=== PATIENT | female | born 1930 | race Caucasian/White ===

== ENCOUNTER 2016-08-08 21:13 | Inpatient (IN) | payer MEDICARE ==
--- NOTE | ~2016-08-08 | HP ---
History And Physical [address] [place]. [address] NAME: MAKI ADAM : 32 STATUS : ADM IN [facility]#: [id number] AGE: 86 ADM/REG DATE : 08/09/16 MR#: [id number] REPORT SERV DATE: 08/09/16 DICTATED BY: TAE SHER DATE: 08/09/16 REPORT STATUS : Draft TRANSCRIBED BY: BANDAR DATE: 08/09/16 DATE OF ADMISSION: 08/08/2016 CHIEF COMPLAINT: Left hip pain. HISTORY OF PRESENT ILLNESS: The patient is an 86-year-old elderly female, who is a resident of an assisted living facility the [facility]. The patient reports she had slipped and fallen and complained of left hip pain. She had an x-ray done after her fall and she reports she was told that she has a broken left hip. The patient was therefore transferred to [facility] for further evaluation and treatment. ALLERGIES: PENICILLIN CAUSES SWELLING AND REDNESS, CODEINE CAUSES NAUSEA. SHE HAS NO KNOWN FOOD ALLERGY, BUT REPORTS SHE HAS ALLERGY TO POLLEN. CODE STATUS: DNR with limited intervention. MEDICATIONS: Include 1. P.r.n. Tylenol. 2. Acetylcysteine 600 mg 1 capsule twice a day. 3. Abilify 5 mg daily. 4. Benazepril 10 mg daily. 5. Brimonidine ophthalmic solution 0.1% solution 1 drop three times daily. 6. Brinzolamide ophthalmic solution 1 drop twice a day. 7. Calcium with vitamin D 500 tablet 1 tablet p.o. daily. 8. Cholecalciferol 2000 unit tablet 1 tablet daily. 9. Namenda 10 mg one tablet at bedtime. 10.Mirabegron 25 mg ER one tablet at bedtime. 11.Omeprazole 20 mg p.o. daily. 12.Tramadol 50 mg p.o. at bedtime. 13.Trazodone 50 mg tablet half a tablet at bedtime. 14.Lactinex chew 1 tablet daily. PAST MEDICAL HISTORY: Positive for: 1. Osteoarthritis, generalized. 2. Hypertension. 3. Osteoporosis. PAST SURGICAL HISTORY: Positive for hysterectomy, appendectomy at age 17, and bilateral cataract surgery 18 years ago. SOCIAL HISTORY: The patient is a resident of the [facility]. She has three children, two living and one . The patient reports she has two children live in [place]. FAMILY HISTORY: The patient reports both mother and father of heart problem. She reports both have hypertension. Maternal grandmother had a stroke. The patient reports no History And Physical [address] [place]. [address] NAME: MAKI ADAM : 32 STATUS : ADM IN [facility]#: [id number] AGE: 86 ADM/REG DATE : 08/09/16 MR#: [id number] REPORT SERV DATE: 08/09/16 DICTATED BY: TAE SHER DATE: 08/09/16 REPORT STATUS : Draft TRANSCRIBED BY: BANDAR DATE: 08/09/16 family history of diabetes and renal kidney disease. REVIEW OF SYSTEMS: The patient reports she has a history of glaucoma and cataracts. She had cataract surgery 18 years ago. The patient denies any problem hearing or swallowing. The patient reports she has a history of hypertension. The patient denies any complaint of chest pain or shortness of breath. The patient reports she had asthma as a child. She does have allergies. The patient reports she has a history of reflux. She denies any history of ulcer. The patient reports she had a small growth in her throat and found 10 years ago but no issue with swallowing. She denies any complaint of nausea and vomiting. She does take omeprazole. The patient reports she has no issue with urination. She denies any complaint of pain. She reports she had a catheter placed at the hospital. The patient reports she has a history of generalized arthritis. She has a history of osteoporosis. She walks with a walker. Her recent incident of fall was secondary to her shoe getting caught in her walker and she slipped and fell. She denies any history of other falls. The patient reports she does have occasional swelling especially around her ankle. She denies any history of seizures or stroke. She reports she was receiving rehab while at [facility]. The patient denies any anxiety and denies any thyroid or hypoglycemia. The patient denies any history of dementia. The patient denies any history of aspirin use or any bleeding issue. PHYSICAL EXAMINATION: VITAL SIGNS: BP of 173/84, pulse of 73, respiratory rate 18, temperature 97.7, and sat O2 of 98% on 2 L nasal cannula. Weight of 58.96 kg. BMI of 19.2. Last I's and O's was 140/2300 mL. GENERAL: The patient is alert and oriented with no acute distress noted. HEENT: Oral mucosa moist. Nasal cannula in use at 2 L. Eyes, PERRL. Nonicteric bilaterally. NECK: Supple. No JVD. CHEST: No chest deformity noted. LUNGS: Clear to auscultation bilaterally. Symmetrical expansion. CARDIOVASCULAR: No murmurs, rubs, or gallops noted. Regular rate and rhythm. Normal S1, S2. ABDOMEN: Soft, nontender. Active bowel sounds x4 quadrants. No organomegaly noted. GENITOURINARY: Meza in use with clear urine noted. EXTREMITIES: Bilateral upper extremity with no edema noted. Generalized arthritic changes in the hands and left lower arm peripheral IV intact without redness or pain. Lower extremity noted at least 1+ to 2+ bilateral lower extremity edema especially around the ankle. Good distal pulses palpable. Noted generalized arthritic changes. As well as in the lower extremity strength is 4/5 with good bilateral equal social worker school and mild tenderness on palpation in the left hip, but no ecchymosis or edema noted. LABORATORY STUDIES: On 08/08/2016, sodium 139, potassium 3.7, chloride 101, CO2 of 30, BUN 17, creatinine of 0.55, glucose of 112, GFR of 86. WBC 6.3, hemoglobin 10.0, hematocrit 29.8, platelet of 198. PT of 15.8, INR 1.3. AST 15, bilirubin 1.0, total protein 6.3, ALT of 20, albumin 3.1, and alkaline phosphatase 72. History And Physical [address] [address] NAME: MAKI ADAM : 32 STATUS : ADM IN [facility]#: [id number] AGE: 86 ADM/REG DATE : 08/09/16 MR#: [id number] REPORT SERV DATE: 08/09/16 DICTATED BY: TAE SHER DATE: 08/09/16 REPORT STATUS : Draft TRANSCRIBED BY: MODAmna DATE: 08/09/16 08/09/2016 labs revealed sodium 136, potassium 3.3, chloride 101, CO2 of 29, BUN 9, creatinine 0.44, glucose of 102, and GFR of 92. WBC 5.4, hemoglobin 9.9, hematocrit 28.7, platelet of 184. INR 1.3 and PT of 31.0. IMAGING STUDY: On 08/08/2016, chest x-ray revealed no acute process. Hip x-ray revealed impacted left femoral fracture. IV normal saline at 30 mL and a morphine MOTOR REBUILDER pump in use. ASSESSMENT: 1. Left femoral fracture status post fall. 2. Left hip pain secondary to #1. 3. Hypokalemia. 4. Hypertension, controlled/essential. 5. Anemia secondary to chronic disease. 6. Osteoporosis. 7. Generalized osteoarthritis. 8. Gait impairment. PLAN: Appreciate Dr. Dumont's, surgeon, assistance with care of the patient. The patient is pending left hip surgery today, remain n.p.o., and continue to control pain, which is morphine MOTOR REBUILDER pump. We will continue to keep the patient at bed rest at this time. The patient is at risk for poor recovery. We will keep the patient without any DVT prophylaxis pending surgery, but we will defer DVT prophylaxis, which the patient will likely need anticoagulation post surgery with Coumadin. The patient is at risk for DVT. We will place the patient on electrolyte protocol. On admission, potassium was 3.7, but this morning was 3.3. Since the patient is n.p.o., we will need to replace potassium via IV. We will plan to repeat labs in a.m. The patient is at risk for cardiac arrhythmia. The patient with admission H and H of 10.0 and 29.8 likely anemia secondary to chronic disease. We will continue to monitor laboratories study if needed. We will place the patient on iron supplement or give blood transfusion if significant decline in H and H. The patient is at risk for hypoxia, acute coronary syndrome with severe anemia. We will continue to monitor blood pressure. The patient's blood pressure elevated at this time likely secondary to pain as well as the patient getting her blood pressure medicine. Since the patient is n.p.o., we will have p.r.n. IV hydralazine for blood pressure systolically greater than 150. We will resume home medications once the patient is off n.p.o. The patient is at risk for CVA. We will continue other home med regimen include Abilify despite the patient's report no history of anxiety. We will continue this given the patient might have a breakthrough anxiety while hospitalized post surgery. We will plan to refer the patient to PT/OT once the patient cleared by Orthopedics. The patient is at risk for recurrent fall. Address POLST form/code status with the patient. History And Physical [address] [address] [place] [address] NAME: MAKI ADAM : 32 STATUS : ADM IN PAT#: [id number] AGE: 86 ADM/REG DATE : 08/09/16 MR#: [id number] REPORT SERV DATE: 08/09/16 DICTATED BY: TAE SHER DATE: 08/09/16 REPORT STATUS : Draft TRANSCRIBED BY: DARIANL DATE: 08/09/16 The patient wishes not to have any heroic effort, but is in agreement with limited intervention to include antibiotic, IV fluid, temporary tube feeding, and medication to stabilize her blood pressure. POLST form completed and placed in chart. DICTATED BY: Lilli Dodd NP CLP/MODL Tae Sher M.D. / [id number] CC: Ted Worrell M.D. NO PCP
--- NOTE | ~2016-08-08 | DS ---
Discharge Summary [facility] [address] [facility] [place]. [address] NAME: MAKI ADAM : 32 STATUS : DIS IN PAT#: [id number] AGE: 86 ADM/REG DATE : 08/09/16 MR#: [id number] REPORT SERV DATE: 08/20/16 DICTATED BY: TAE SHER DATE: 08/19/16 REPORT STATUS : Draft TRANSCRIBED BY: BANDAR DATE: 08/19/16 Data Collection from hospitalization DISCHARGE DIAGNOSES: 1. Left femoral fracture status post fall,, status post left hip total hip arthroplasty. 2. Gait impairment. 3. Hgrnqqpbtblu-ffiqbid-igrgwjninn. 4. Anemia of chronic disease. 5. Osteoporosis. 6. Osteoarthritis. CONSULTATION: Dr. Elicia Dumont. PROCEDURES PERFORMED: Uncemented total hip arthroplasty, Tri-Lock, 08/09/2016. PATHOLOGY: Femoral head left hip joint replacement-medullary hemorrhage consistent with clinical history of fracture. No tumor seen. Hematopoietic marrow was present and shows trilineage maturation. DISCHARGE MEDICATIONS: Acetylcysteine 600 mg twice a day, Abilify 5 mg daily, Lotensin 10 mg daily, Alphagan one drop three times a day, Os-Dwight plus D 500 mg daily, vitamin D 2000 units daily, Colace 100 mg twice a day, ferrous sulfate 300 mg with breakfast and supper, Theragran tablets one tablet with breakfast, Namenda 10 mg at bedtime, Myrbetriq 25 mg at bedtime, Prilosec 20 mg daily, Florastor one capsule daily, Desyrel 25 mg at bedtime, Coumadin as instructed, Tylenol 650 mg every four hours as needed, Mylanta 30 mL as needed, Dulcolax 15 mg as needed, Climax 7.5/325 one tablet every four hours as needed, Ultram 50 mg at bedtime, milk of magnesia 30 mL as needed, Zofran 4 mg every four hours as needed, MiraLAX powder one packet twice a day as needed, Azopt one drop twice a day, Lactinex one tablet daily. CONDITION AT DISCHARGE: Stable. DISPOSITION: The patient was discharged to [facility] on a regular diet with activities as instructed. She would follow up with her primary care physician and with Dr. Dumont as instructed. HOSPITAL COURSE: This is an 86-year-old female, who is a resident of an assisted living facility at the [facility]. The patient reports that she slipped and fell and was complaining of left hip pain. An x-ray was performed after her fall and she reports that she was told that she had a broken left hip. She was transferred to the [facility] emergency room for evaluation and treatment. Hip x-ray revealed impacted left femoral fracture. She was admitted to the hospital at this time for further evaluation and treatment. Upon admission, IV normal saline was started as well as morphine ADJUNCT INSTRUCTOR pump. The patient was placed on electrolyte protocol. Potassium supplementation would be provided. The patient was seen by Dr. Elicia Dumont. The patient had been exercising with her walker when she fell and injured her left hip. X-rays had shown displaced left femoral neck fracture. Discharge Summary [address] [place]. 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 Treatment options were discussed and it was elected to proceed with surgical intervention. She was taken to the operating room, where she underwent the above-mentioned procedure by Dr. Dumont. She tolerated this well and there were no complications. On postop day #1, she was evaluated by Occupational and Physical Therapy. Her pain had decreased. She was up sitting in a chair. She did have some confusion. YOUSIF hose were in place. Protonix was continued. On postop day #2, she had no new complaints. She was transfused one unit of packed red blood cells. Discharge planning was performed. On 08/12/2016, she continued to do well. She denied any complaints of shortness of breath, chest pain, nausea, vomiting, or abdominal pain. She reported that her left hip pain was controlled with pain medication. Discharge instructions were given. Due to her improved and stable condition, she was discharged to [facility] with the above-stated instructions. Information collected by: Sheryl Torres I submit the above information as my discharge summary. TG/MODL Tae Sher M.D. / [id number] CC: Mary Mahan M.D. [facility]
--- NOTE | ~2016-08-08 | HP ---
History And Physical [address] [place]. [address] NAME: MAKI ADAM : 32 STATUS : ADM Evelyn PAT#: [id number] AGE: 86 ADM/REG DATE : 08/08/16 MR#: [id number] REPORT SERV DATE: 08/09/16 DICTATED BY: DEENA DUMONT DATE: 08/09/16 REPORT STATUS : Draft TRANSCRIBED BY: MODAmna DATE: 08/09/16 DATE OF ADMISSION: 08/08/2016 CHIEF COMPLAINT: Left hip pain. HISTORY: This is an 86-year-old female, who was exercising with her walker and fell and injured her left hip. She denies pain or injury elsewhere. She has had her feet get from the walker. She had no associated loss of consciousness, shortness of breath, chest pain, etc. ALLERGIES: PENICILLIN AND CODEINE. MEDICATIONS: See chart. PAST MEDICAL HISTORY: Dementia, glaucoma, sinusitis, hypertension, arthritis, osteoporosis, GERD, "schizophrenia" according to the chart, anxiety and depression. PAST SURGICAL HISTORY: Right breast lumpectomy 18 years ago and hysterectomy in 1965. SOCIAL HISTORY: No cigarettes, alcohol, or illicit drug use. FAMILY HISTORY: No known anesthetic complications. REVIEW OF SYSTEMS: No other recent illnesses. PHYSICAL EXAMINATION: GENERAL: She is alert and oriented x3, and very pleasant. (Despite the chart notations of dementia and schizophrenia, she is 100% clear with me). VITAL SIGNS: Afebrile. Vital signs stable. HEENT: Atraumatic, normocephalic. NECK: Supple. CHEST: Symmetric, nontender. LUNGS: Per Medicine evaluation. CV: Regular. ABDOMEN: Soft. No mass. EXTREMITIES: Both upper extremities and right lower extremity without acute trauma. Left lower extremity is short and externally rotated. Skin is intact. Compartment supple. 2+ pulses. NEURO: Sensory decreased subjectively somewhat and due to the pain in her hip, she did not move her toe and ankle up and down to commands. X-RAY: 1. Displaced left femoral neck fracture. 2. Pseudoparalysis, left lower extremity, I suspect secondary to fracture. History And Physical [address] [place]. [address] NAME: MAKI ADAM : 32 STATUS : ADM Evelyn PAT#: [id number] AGE: 86 ADM/REG DATE : 08/08/16 MR#: [id number] REPORT SERV DATE: 08/09/16 DICTATED BY: DEENA DUMONT DATE: 08/09/16 REPORT STATUS : Draft TRANSCRIBED BY: MODL DATE: 08/09/16 PLAN: Left total hip arthroplasty. We discussed risks, benefits, etc, at length, and the patient wishes to proceed. WTB/MODL Elicia Dumont M.D. / [id number] CC: Ted Worrell M.D.
--- NOTE | ~2016-08-08 | OP ---
Record Of Operation [facility] [address] [place]. [address] NAME: MAKI ADAM : 32 STATUS : ADM IN PAT#: [id number] AGE: 86 ADM/REG DATE : 08/09/16 MR#: [id number] REPORT SERV DATE: 08/10/16 DICTATED BY: DEENA MOORE DATE: 08/09/16 REPORT STATUS : Draft TRANSCRIBED BY: BANDAR DATE: 08/09/16 DATE OF PROCEDURE: 08/09/2016 PREOPERATIVE DIAGNOSIS: Left hip displaced femoral neck fracture. POSTOPERATIVE DIAGNOSIS: Left hip displaced femoral neck fracture. PROCEDURE: Uncemented total hip arthroplasty, Tri-Lock. SIDE: Left. BROTH MIXER: ANESTHESIA: See chart. SIZE: See chart. ESTIMATED BLOOD LOSS: About 100 mL. INDICATIONS FOR SURGERY: PROCEDURE: The patient was taken to the operating room and placed supine on the table without incident. Anesthetic was induced per the anesthesiologist. A Meza catheter was placed by the nurse in the standard sterile technique. The correct side for the procedure was identified by preoperative markings and matched with the consent form. All personnel in the room were in agreement regarding the procedure, patient, and side. The patient was then carefully positioned and carefully padded and prepped and draped in the normal sterile fashion. The patient received prophylactic preoperative antibiotics at the appropriate time. The preoperative x-ray was brought up on the monitor. Again, this was reviewed with the staff in the room. According with the preoperative plan, and angled, an anterolateral incision was made centered over the trochanter extending from proximal posterior to distal anterior. Electrocautery was used to maintain meticulous hemostasis. The IT band was split in line with its fibers. A Charnley retractor was placed over saline moistened laps. A standard anterolateral approach to the hip was carried out dissecting in line with the vastus medialis fibers lifting the inferior 20% of the vastus medialis, proximally the interior 20% of the gluteus medius and gluteus minimus tendons off the anterior capsule. Periosteal elevator was used to elevate soft tissue gently directly off the proximal anterior femoral bone. Appropriate retractors were carefully placed. Complete anterior capsulectomy was performed. The hip was then carefully dislocated with a combination of traction maneuver by the certified first assistant and scooping the ball out of the socket with a Hohmann. A femoral neck osteotomy was marked according to what had been preoperatively planned with a broach as a template. The distance for the femoral neck osteotomy was measured with a ruler. A femoral neck osteotomy was made with an oscillating saw under appropriate retraction. Meticulous hemostasis was again obtained. The leg was then brought up out of the anterior bag and Record Of Operation [address] [place]. [address] NAME: MAKI ADAM : 32 STATUS : ADM IN PAT#: [id number] AGE: 86 ADM/REG DATE : 08/09/16 MR#: [id number] REPORT SERV DATE: 08/10/16 DICTATED BY: DEENA MOORE DATE: 08/09/16 REPORT STATUS : Draft TRANSCRIBED BY: BANDAR DATE: 08/09/16 positioned with the lower extremity in external rotation and slight flexion. Acetabular retractors were placed carefully palpating to be sure that they were directly on the bone. The acetabular labrum was excised with electrocautery and rongeur. Pulvinar fat was removed with a large curette and rongeur and again meticulous hemostasis was obtained. Sequential reamers were used in the acetabulum to 1 mm. less than the final size which was chosen. This was felt to give excellent interference fit. The acetabular fossa was then copiously irrigated with pulsatile lavage and actual acetabular component was placed and impacted and checked to make sure it was down snug. The overall alignment was checked. The acetabular set up mold technician was then removed. Screws were placed in the standard fashion. A drill, depth gauge and self tapping screw placement taking care not to plunge as the drill holes were carefully placed. A trial liner was then placed and attention directed back to the proximal femur. The leg was placed back into the anterior bag. The proximal femur was prepared using a box chisel following by a T-handled reamer to determine the intramedullary alignment. This was followed by sequential broaches up to the final broach. Once it was seated in the appropriate position, a Calcar reamer was used to plane the proximal femur. Trial reduction was then done with a trial prosthetic ball and neck. A straight edge was used to compare the tip of the trochanter to center of the ball relationship to what had been noted on the preoperative x-ray. Careful reduction was then done of the total hip. Palpation was done to ascertain and compare leg lengths by palpating the nonoperative leg and also by checking soft tissue tension. The stability of the hip was checked in full extension with full external rotation and in full flexion with adduction, flexion and internal rotation. The hip was then redislocated with a bone hook. The femoral trial and femoral broach were removed. The acetabulum was then prepared under appropriate retraction by removing the trial liner. A central hole eliminator was placed and tightened. The shell was irrigated out. The actual insert was placed and impacted and then checked to be sure it was down snug with a joker. The leg was again positioned in the bag. The proximal femur exposed, irrigated and the actual thermal prosthesis was taken from the healthcare representative and impacted. Once it was down, the trunnion was cleansed with a wet and dry lap and the prosthetic thermal head was placed and impacted and checked to be sure it was down snug. The acetabulum was irrigated and reduction was obtained. Again, we checked soft tissue tension, leg length and stability as described above. The hip was closed in a layered fashion with a 5 mm. Mersilene tape placed through a single drill hole in the proximal anterior/superior trochanter reattaching the gluteus medius and minimus fibers. The vastus lateralis, gluteus medius, and gluteus minimus were then closed in a sleeve. Drain was placed between the vastus and the IT band exiting distally anteriorly. The IT band was closed. Subcutaneous closure and skin closure were then obtained. A sterile dressing was applied. The patient was carefully positioned into a supine position and then awakened. The patient was then carefully transferred to the stretcher to be returned to the postoperative care unit without incident. COMPLICATION: None. SPECIMENS: Left femoral head. Record Of Operation [address] [place]. [address] NAME: MAKI ADAM : 32 STATUS : ADM IN [facility]#: [id number] AGE: 86 ADM/REG DATE : 08/09/16 MR#: [id number] REPORT SERV DATE: 08/10/16 DICTATED BY: DEENA MOORE DATE: 08/09/16 REPORT STATUS : Draft TRANSCRIBED BY: BANDAR DATE: 08/09/16 WTB/MODL Elicia Moore M.D. / [id number] CC: Ted Worrell M.D.
[2016-08-08] MEDS ORDERED: ALPHAGAN P0.1 % OPH (21:50)
[2016-08-08] MEDS ORDERED: AZOPT OPH (21:50)
[2016-08-08 21:51] LABS: BASOPHILS 0.2 %; BASOPHILS ABSOLUTE 0.01 10/3/uL (0.0-0.16); EOSINOPHILS 0.2 %; EOSINOPHILS ABSOLUTE 0.01 10/3/uL (0.0-0.53); ER CBC TAT 0 Hrs 07 Mins; HEMATOCRIT 29.8 % (36.0-48.0); IMMATURE GRANULOCYTES 0.2 %; IMMATURE GRANULOCYTES ABSOLUTE 0.01 10/3/uL (0.0-0.11); LYMPHOCYTES 13.8 %; LYMPHOCYTES ABSOLUTE 0.87 10/3/uL (0.67-4.30); MEAN CORPUS HGB CONC 33.6 g/dL (32.0-36.0); MEAN CORPUSCULAR HEMOGLOB 29.9 pg (26.0-34.0); MEAN CORPUSCULAR VOLUME 89.2 fL (80-100); MEAN PLATELET VOLUME 8.8 fL (9.2-13.0); MONOCYTES 6.2 %; MONOCYTES ABSOLUTE 0.39 10/3/uL (0.21-1.20); NEUTROPHILS 79.4 %; PLATELET COUNT 198 10/3/uL (150-400); RBC DISTRIBUTION WIDTH 13.9 % (12.0-16.0); RED CELL COUNT 3.34 10/6/uL (4.0-5.6); WHITE BLOOD CELLS 6.3 10/3/uL (4.5-10.5)
[2016-08-08] MEDS ORDERED: LACTINEX PO (21:51)
[2016-08-08] MEDS ORDERED: NAMENDA10 MG PO (21:52)
[2016-08-08] MEDS ORDERED: PRILO PO (21:52)
[2016-08-08 21:53] LABS: MANUAL DIFF NO %
[2016-08-08] MEDS ORDERED: ABILIFY5 PO (21:53)
[2016-08-08] MEDS ORDERED: TRAZ50 PO (21:53)
[2016-08-08] MEDS ORDERED: OS500+D PO (21:54)
[2016-08-08] MEDS ORDERED: LOTE10 PO (21:54)
[2016-08-08] MEDS ORDERED: NAC600 MG PO (21:54)
[2016-08-08] MEDS ORDERED: VITAMIN D2000 UNIT PO (21:55)
[2016-08-08] MEDS ORDERED: 8 HOUR650 MG PO (21:55)
[2016-08-08] MEDS ORDERED: ULTRAM50 PO (21:56)
[2016-08-08] MEDS ORDERED: MYRBETRIQ25 MG PO (21:56)
[2016-08-08 21:59] LABS: INTERNATIONAL NORMAL RATI 1.3 UNITS (-); PROTIME (NOT ORD) 15.8 SEC (12.0-14.5)
[2016-08-08 22:09] LABS: ALBUMIN 3.1 G/DL (3.5-5.0); ALKALINE PHOSPHATASE 72 U/L (45-117); BUN (BLOOD UREA NITROGEN) 17 MG/DL (6-23); CALCIUM, SERUM 8.2 MG/DL (8.5-10.4); CHLORIDE, SERUM 101 MMOL/L (96-112); CO2 (CARBON DIOXIDE) 30 MMOL/L (24-34); CREATININE 0.55 MG/DL (0.55-1.02); GFR AFRICAN AMERICAN 99 ML/MIN (>=60); GFR NON AFRICAN AMERICAN 86 ML/MIN (>=60); GLOBULIN 3.2 G/DL (2.5-4.1); GLUCOSE, SERUM 112 MG/DL (60-99); POTASSIUM, SERUM 3.7 MMOL/L (3.5-5.3); SGOT(AST) 15 U/L (5-40); SGPT(ALT) 20 U/L (5-65); SODIUM, SERUM 139 MMOL/L (135-148); TOTAL PROTEIN 6.3 G/DL (6.0-8.5)
[2016-08-08 23:14] LABS: ASCORBIC ACID (UR NOT ORDER) NEG (NEG); BILIRUBIN, URINE NEGATIVE (NEG); ER URINALYSIS TAT 0 Hrs 00 Mins; KETONE, URINE NEGATIVE (NEG); LEUKOCYTE ESTERASE(NOT OR NEG (NEG); NITRITE (URINE) NEG (NEG); WBC (NOT ORDERED) (RFLEX) < 1 (0-5)
[2016-08-09 09:57] LABS: INTERNATIONAL NORMAL RATI 1.3 UNITS (-); PROTIME (NOT ORD) 16.3 SEC (12.0-14.5)
[2016-08-09 10:00] LABS: CHLORIDE, SERUM 101 MMOL/L (96-112); CO2 (CARBON DIOXIDE) 29 MMOL/L (24-34); CREATININE 0.44 MG/DL (0.55-1.02); GFR AFRICAN AMERICAN 107 ML/MIN (>=60); GFR NON AFRICAN AMERICAN 92 ML/MIN (>=60); GLUCOSE, SERUM 102 MG/DL (60-99); POTASSIUM, SERUM 3.3 MMOL/L (3.5-5.3); SODIUM, SERUM 136 MMOL/L (135-148)
[2016-08-09 10:01] LABS: BUN (BLOOD UREA NITROGEN) 9 MG/DL (6-23)
[2016-08-09 10:06] LABS: BASOPHILS 0.2 %; BASOPHILS ABSOLUTE 0.01 10/3/uL (0.0-0.16); EOSINOPHILS 0.9 %; EOSINOPHILS ABSOLUTE 0.05 10/3/uL (0.0-0.53); HEMATOCRIT 28.7 % (36.0-48.0); HEMOGLOBIN 9.9 g/dL (12.0-16.0); IMMATURE GRANULOCYTES 0.2 %; IMMATURE GRANULOCYTES ABSOLUTE 0.01 10/3/uL (0.0-0.11); LYMPHOCYTES 14.2 %; LYMPHOCYTES ABSOLUTE 0.76 10/3/uL (0.67-4.30); MANUAL DIFF NO %; MEAN CORPUS HGB CONC 34.5 g/dL (32.0-36.0); MEAN CORPUSCULAR HEMOGLOB 30.8 pg (26.0-34.0); MEAN CORPUSCULAR VOLUME 89.4 fL (80-100); MEAN PLATELET VOLUME 9.2 fL (9.2-13.0); MONOCYTES 8.2 %; MONOCYTES ABSOLUTE 0.44 10/3/uL (0.21-1.20); NEUTROPHILS 76.3 %; NEUTROPHILS ABSOLUTE 4.08 10/3/uL (2.02-8.40); PLATELET COUNT 184 10/3/uL (150-400); RBC DISTRIBUTION WIDTH 13.7 % (12.0-16.0); RED CELL COUNT 3.21 10/6/uL (4.0-5.6); WHITE BLOOD CELLS 5.4 10/3/uL (4.5-10.5)
[2016-08-10 05:39] LABS: HEMOGLOBIN 8.7 g/dL (12.0-16.0); MEAN CORPUS HGB CONC 34.8 g/dL (32.0-36.0); MEAN CORPUSCULAR HEMOGLOB 31.2 pg (26.0-34.0); MEAN CORPUSCULAR VOLUME 89.6 fL (80-100); MEAN PLATELET VOLUME 8.9 fL (9.2-13.0); PLATELET COUNT 161 10/3/uL (150-400); RED CELL COUNT 2.79 10/6/uL (4.0-5.6)
[2016-08-10 05:40] LABS: MANUAL DIFF YES %
[2016-08-10 05:53] LABS: INTERNATIONAL NORMAL RATI 1.4 UNITS (-)
[2016-08-10 05:54] LABS: BUN (BLOOD UREA NITROGEN) 14 MG/DL (6-23); CALCIUM, SERUM 7.9 MG/DL (8.5-10.4); CHLORIDE, SERUM 101 MMOL/L (96-112); CO2 (CARBON DIOXIDE) 24 MMOL/L (24-34); CREATININE 0.52 MG/DL (0.55-1.02); GFR AFRICAN AMERICAN 101 ML/MIN (>=60); GFR NON AFRICAN AMERICAN 87 ML/MIN (>=60); GLUCOSE, SERUM 103 MG/DL (60-99); POTASSIUM, SERUM 4.3 MMOL/L (3.5-5.3); SODIUM, SERUM 135 MMOL/L (135-148)
[2016-08-10 07:26] LABS: BAND NEUTROPHILS 9 %; IMMATURE GRANS ABSOLUTE (CALC) 0.07 10/3/uL (0.0-0.11); LYMPHOCYTES 5 %; LYMPHOCYTES ABSOLUTE (CALC) 0.35 10/3/uL (0.67-4.30); METAMYELOCYTES 1 %; MONOCYTES 4 %; MONOCYTES ABSOLUTE (CALC) 0.28 10/3/uL (0.21-1.20); PLATELET ESTIMATE ADQ (ADEQUATE); RBC MORPHOLOGY NORM (NORMAL); SEGMENTED NEUTROPHIL (0) 81 %; TOTAL NUCLEATED CELLS 100
[2016-08-11 05:46] LABS: INTERNATIONAL NORMAL RATI 1.4 UNITS (-); PROTIME (NOT ORD) 16.6 SEC (12.0-14.5)
[2016-08-11 05:47] LABS: BASOPHILS 0 %; EOSINOPHILS 0 %; HEMOGLOBIN 7.7 g/dL (12.0-16.0); IMMATURE GRANULOCYTES 0.1 %; IMMATURE GRANULOCYTES ABSOLUTE 0.01 10/3/uL (0.0-0.11); LYMPHOCYTES 7.2 %; MEAN CORPUS HGB CONC 34.8 g/dL (32.0-36.0); MEAN CORPUSCULAR HEMOGLOB 30.7 pg (26.0-34.0); MEAN PLATELET VOLUME 9.6 fL (9.2-13.0); MONOCYTES 7.4 %; MONOCYTES ABSOLUTE 0.51 10/3/uL (0.21-1.20); NEUTROPHILS 85.3 %; NEUTROPHILS ABSOLUTE 5.91 10/3/uL (2.02-8.40); PLATELET COUNT 151 10/3/uL (150-400); RBC DISTRIBUTION WIDTH 13.7 % (12.0-16.0); RED CELL COUNT 2.51 10/6/uL (4.0-5.6); WHITE BLOOD CELLS 6.9 10/3/uL (4.5-10.5)
[2016-08-11 05:53] LABS: HEMATOCRIT 22.1 % (36.0-48.0); MANUAL DIFF NO %
[2016-08-11 05:58] LABS: CALCIUM, SERUM 8.3 MG/DL (8.5-10.4); CHLORIDE, SERUM 100 MMOL/L (96-112); CO2 (CARBON DIOXIDE) 26 MMOL/L (24-34); CREATININE 0.66 MG/DL (0.55-1.02); GFR AFRICAN AMERICAN 93 ML/MIN (>=60); GFR NON AFRICAN AMERICAN 81 ML/MIN (>=60); POTASSIUM, SERUM 4.2 MMOL/L (3.5-5.3); SODIUM, SERUM 135 MMOL/L (135-148)
[2016-08-11 06:01] LABS: BUN (BLOOD UREA NITROGEN) 21 MG/DL (6-23); GLUCOSE, SERUM 125 MG/DL (60-99)
[2016-08-12 06:23] LABS: INTERNATIONAL NORMAL RATI 1.3 UNITS (-); PROTIME (NOT ORD) 15.8 SEC (12.0-14.5)
[2016-08-12 06:30] LABS: HEMATOCRIT 23.8 % (36.0-48.0); HEMOGLOBIN 8.4 g/dL (12.0-16.0)
== END 2016-08-12 17:03 | DRG 470 ==
LOC: ER 21:13 → 1SO 23:02
PROVIDERS: Family Medicine; Nurse Practitioner; Specialist
PROC: 0SRB02A Replacement of Left Hip Joint with Metal on Polyethylene Synthetic Substitute, Uncemented, Open Approach (ICD-10-PCS; principal; 2016-08-09 16:30)
PROC: 30233N1 Transfusion of Nonautologous Red Blood Cells into Peripheral Vein, Percutaneous Approach (ICD-10-PCS; 2016-08-11)
DX: S72.002A Fracture of unspecified part of neck of left femur, initial encounter for closed fracture (principal); D62 Acute posthemorrhagic anemia; Z68.1 Body mass index [BMI] 19.9 or less, adult; F03.90 Unspecified dementia, unspecified severity, without behavioral disturbance, psychotic disturbance, mood disturbance, and anxiety; D63.8 Anemia in other chronic diseases classified elsewhere; F20.9 Schizophrenia, unspecified; I10 Essential (primary) hypertension; E87.6 Hypokalemia; H40.9 Unspecified glaucoma; K21.9 Gastro-esophageal reflux disease without esophagitis; F41.8 Other specified anxiety disorders; Z66 Do not resuscitate; M81.0 Age-related osteoporosis without current pathological fracture; Z88.0 Allergy status to penicillin; Z88.5 Allergy status to narcotic agent; Z91.048 Other nonmedicinal substance allergy status; Z79.899 Other long term (current) drug therapy
CPT/HCPCS: 36415; 71010; 72170; 73502-LT; 80048; 80053; 81001; 85014; 85018; 85025; 85610; 85730; 86850; 86900; 86901; 86920; 87641; 88305; 88311; 93005; 96374; 97110-GO; 97110-GP; 97162-GP; 97166-GO; 97530-GP; 97535-GO; 99285; A9270-GY; C1713; C1776; G8978-CL-GP; G8979-CJ-GP; J0690; J1885; J2270; J2274; J2405; J2795; J3010; J3370; P9016